=== PATIENT | female | born 1985 | race Caucasian/White ===

== ENCOUNTER → 2016-08-23 22:13 | Observation (INO) ==
--- NOTE | 2016-08-23 20:45 | OB/GYN History & Physical ---
Date of Encounter: 08/23/16 Time of Encounter: 20:42 Assessment and Plan (1) Hypertension Current visit: Yes Status: Resolved BP on intake 135/84 with hr 93. Patient's blood pressure cycled every 15 minutes: Systolic between 1:15 and 123 , diastolic between 61 and 74. Heart rate between 67 and 82. Urine protein less than 7 Protein to creatinine ratio less than 0.15. reactive on monitor with heart [id number] with accelerations 160s-170s. Given the above, no clinical indication of pre-eclampia. Discussed the plan is the patient and she has no additional questions. She feels safe for discharge home. Her next appointment with her primary OB is Anitra. Aug. Qualifiers: Qualified Code(s): I15.8 - Other secondary hypertension (2) High-risk in third trimester Current visit: Yes Status: Acute Currently followed at [facility]. Patient has planned induction vs for first week of November (delivery date 15 November). 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 Hx pancreatectomy, splenectomy, cholycystecomy, appendectomy, 80% colectomy, 50% gastrectomy. 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 Sanz is a 31 year old female presents from home with concern re: hypertension. 28wk gestation due 15 November. Breech presentation. ([id number]; miscarried @ 6wks). High risk followed by [facility]. Next appt Aug. BP measured at home as 162/102 via wrist automatic blood pressure cuff at 18: 45. Patient had just returned home from work and was agitated during the measurement. Patient's mother and sister have history of preeclampsia and encouraged her to present to the emergency department for evaluation. She ated dinner prior to presentation. Also complains of bilateral LE pedal edema, worse throughout the day as well as back pain improved with heating pad and headache improved with Tylenol. Patient was at [facility] ER yesterday with concerns regarding loose bowels. Was C. Diff (-). Discharged home. She has maintained adequate rehydration. PMH: No hx HTN. Insulin dependent DM. hx C-diff; last episode Feb. PSH: pancreatectomy splenectomy cholecystectomy appendectomy 80% colectomy 50% gastrectomy Fam Hx: Mother and sister with hx pre-eclampsia. Past Med Surg Social Fam HX - Past Medical History Medical history: diabetes - Social History Smoking Status: Never smoker Alcohol use: none Drug use: none - Family History Father Living Status: Still Living Hx Family Cardiac Disorders: Yes (HTN) Hx Family Respiratory Disorders: No Hx Family Cancer: No Hx Family GI Disorders: No Hx Family Genitourinary Disorders: No Hx Family Endocrine Disorder: No Hx Family Musculoskeletal Disorders: No Hx Family Neuromuscular Disorders: No Hx Family Neurologic Disorders: No Hx Family HEENT Disorders: No Hx Family Autoimmune Disorders: No Hx Family Reproductive Disorders: No Hx Family Psychosocial Disorders: No Hx Family Medical Disorders: No Medications and Allergies Insulin Pump/Infus. Set/Meter [Accu-Chek Combo System] 08/23/16 [History] Lipase/Protease/Amylase [Creon Dr 24,000 Units Capsule] 6 tab PO ACHS 08/23/16 [ History] [id number]/Iron Fumarate/FA/Dss [ 19 Tablet] 1 tab PO DAILY 08/23/16 [ History] Vitamin B Complex [B Complex] 1 tab PO BID 08/23/16 [History] Allergies Hydromorphone [From Dilaudid] Allergy (Verified 08/23/16 20:22) Rash broncheal spasms meperidine [From Demerol] Allergy (Verified 08/23/16 20:22) Anaphylaxis morphine Allergy (Verified 08/23/16 20:22) Anaphylaxis moxifloxacin [From Avelox] Allergy (Verified 08/23/16 20:22) Rash vancomycin Allergy (Verified 08/23/16 20:22) Rash Review of System OB - Constitutional Constitutional ROS IM: no anorexia, no fever(s), no malaise - Cardiovascular Cardiovascular: leg edema, no chest pain, no lightheadedness, no palpitations - Respiratory Respiratory: no cough, no dyspnea - Gastrointestinal Gastrointestinal: loose stools (chronic), no abdominal pain, no change in bowel habits, no hematochezia, no melena, no nausea, no vomiting - Genitourinary Genitourinary: no difficulty urinating, no flank pain, no urinary frequency, no urinary hesitancy, no vaginal discharge - Muscloskeletal Musculoskeletal: back pain - Neurological Nerological: headache(s), no confusion, no dizziness, no focal weakness Exam - Constitutional Constitutional: well developed, well nourished, no acute distress, average body habitus - HEENT HEENT: Normocephaly, Mucus Membranes Moist - Neck Neck exam: normal inspection, supple - Lungs Respiratory exam: CTAB - Cardiovascular Cardiovascular exam: RRR, +S1, +S2 - Abdomen Abdomen: Present: bowel sounds normal, gravid, non tender. Absent: guarding noted - Extremities Extremities exam: normal capillary refill, normal inspection, pedal edema (1+ and equal bilaterally) Results Result Diagrams: 08/23/16 21:16 08/23/16 21:16 All other labs normal. - VTE Reasons for not Prescribing Prophylaxis: Medical contraindication
[2016-08-23 21:29] LABS: Creatinine,Urine 46 mg/dL
[2016-08-23 21:31] LABS: Basophils % 0.3 %; Eosinophils # 0.2 K/mcL (0.0-0.6); Eosinophils % 1.5 %; Hematocrit 36.1 % (35.3-44.9); Hemoglobin 12.5 g/dL (11.5-15.4); Immature Granulocytes % 1.7 % (0-4); Immature Platelets 9.3 % (1.1-6.1); Lymphocytes # 2.2 K/mcL (0.6-4.6); Lymphocytes % 22.9 %; Mean Corpuscular HGB Conc 34.6 g/dL (31.6-35.5); Mean Corpuscular Hemoglobin 32.8 pg (28.0-33.3); Mean Corpuscular Volume 94.8 fL (83.0-100.0); Monocytes # 0.8 K/mcL (0.0-1.3); Monocytes % 8.4 %; Neutrophils # 6.3 K/mcL (1.6-8.9); Platelet Count 226 K/mcL (140-400); Red Blood Count 3.81 M/mcL (3.82-4.97); Red Cell Distribution Width 13.7 % (11.5-14.5); Segmented Neutrophils % 65.2 %
[2016-08-23 21:32] LABS: Protein/Creatinine Ratio,Urine < 0.15 mg/mg (0-0.20)
[2016-08-23 21:43] LABS: Alanine Aminotransferase 15 Units/L (0-55); Aspartate Amino Transferase 21 Units/L (5-34); BUN/Creatinine Ratio 13 (6-26); Blood Urea Nitrogen 9 mg/dL (7-20); Lactate Dehydrogenase 162 Units/L (159-327); Uric Acid 4.8 mg/dL (2.6-6.0); eGFR For African Americans > 60 (> 60); eGFR For Non-African Americans > 60 (> 60)
== END | disposition home or self-care (01) ==
LOC: 1NENULAB
PROVIDERS: ADMIT Obstetrics & Gynecology; ATTEND Obstetrics & Gynecology

== ENCOUNTER → 2016-09-18 21:26 | Observation (INO) ==
[2016-09-18 18:48] LABS: Bilirubin,Urine Negative (Negative); Blood,Urine Negative (Negative); Clarity,Urine Cloudy (Clear); Color,Urine Dark Yellow (Yellow); Glucose,Urine (UA) 250 mg/dL (Normal); Ketones,Urine Negative (Negative); Leukocyte Esterase,Urine Moderate (Negative); Nitrite,Urine Negative (Negative); PH,Urine 5.5 pH Units (5.0-8.0); Protein,Urine Trace mg/dL (Neg-Trace); Specific Gravity,Urine 1.027 (1.010-1.025); Urobilinogen,Urine Normal (Normal)
[2016-09-18 18:50] LABS: Hyaline Casts,Urine None Seen per lpf (None-Few); RBC,Urine 0-3 per hpf (0-3); Squamous Epithelial Cell,Urine Many per lpf (None-Few)
[2016-09-18 19:02] LABS: Calcium Oxalate Crystals,Urine Present
[2016-09-18 19:03] LABS: Bacteria,Urine Moderate per hpf (None-Few)
--- NOTE | 2016-09-18 21:10 | OB/GYN Progress Note ---
Date of Encounter: 09/18/16 Time of Encounter: 20:55 - Assessment and Plan (1) contractions Current Visit: Yes Status: Acute 31 y/o @ 31+5 weeks who presents today PTC, no LOF, VB or ctxs, feels good FM, cervix checked and FT, UA flagged for culture, IV fluid bolus given, ok for discharge Objective - Vital Signs Vital Signs: Intake and Output 09/18/16 09/18/16 09/18/16 07:59 15:59 23:59 Other: Weight 65.7 kg Patient Weight 09/18/16 23:59 Weight 65.7 kg - Labs Labs: Abnormal lab results Urine Clarity Cloudy (Clear) A 09/18/16 18:30 Ur Specific [place] 1.027 (1.010-1.025) H 09/18/16 18:30 Urine Glucose (UA) 250 mg/dL (Normal) H 09/18/16 18:30 Ur Leukocyte Esterase Moderate (Negative) H 09/18/16 18:30 Urine Microscopic WBC 5-15 per hpf (0-3) H 09/18/16 18:30 Ur Squamous Epith Cells Many per lpf (None-Few) H 09/18/16 18:30 Urine Bacteria Moderate per hpf (None-Few) H 09/18/16 18:30 Ur Culture Indicated? YES (NO) A 09/18/16 18:30
[~2016-09-18 21:26] MED LIST: 0.9 % Sodium Chloride 1,000 ML IVC ONE; 0.9 % Sodium Chloride 1,000 ML ONE; Ringers Solution, Lactated 1,000 ML ONE
== END | disposition home or self-care (01) ==
LOC: 1NENULAB
PROVIDERS: ADMIT Student in an Organized Health Care Education/Training Program; ATTEND Student in an Organized Health Care Education/Training Program

== ENCOUNTER → 2016-09-19 17:00 | Observation (INO) ==
--- NOTE | 2016-09-19 15:57 | OB/GYN Progress Note ---
Date of Encounter: 09/19/16 Time of Encounter: 15:50 - Assessment and Plan (1) 31 weeks gestation of Current Visit: Yes Status: Acute (2) Modified White class B pregestational diabetes mellitus Current Visit: Yes Status: Acute (3) Urinary tract infection affecting care of mother in third trimester, antepartum Current Visit: Yes Status: Acute GBS in urine will place on keflex 500mg BID (4) Vaginal candidiasis Current Visit: Yes Status: Acute will place on terconazole 7 (5) Bacterial vaginosis Current Visit: Yes Status: Acute will place on flagyl 500mg bid (6) High-risk in third trimester Current Visit: No Status: Acute (7) contractions Current Visit: No Status: Acute Subjective - Subjective Interval history: Patient is a 31-year-old 1 para 0 at 31-6/7 weeks who presented to labor and delivery complaining of possible ruptured membranes. Patient has high risk gets her care at [facility]. Patient states she was seen at this morning NST was performed showing occasional contractions but nothing that they were concerned about. On her way home she states she had a gush of fluid called her physician did go to the closest hospital and is truly ruptured we could [facility] her back down there. Patient has significant medical issues with class B diabetes secondary to the pancreatectomy she has had a splenectomy a Samira-en-Y and 80% of her large colon removed. She does have some absorption issues states no significant difference between rectal oil that typically comes out and the discharge she had at this time patient was seen on labor and delivery last night for contractions she was observed nothing that wanted more than IV hydration and then discharged home. Patient to get a urinalysis last time culture did come back positive for group B. Patient states that she needs she had group B in her urine but they told her they would not treat that until time of delivery. Did inform her that we typically treat group B in the uterine any time during the because it is a urinary tract infection that will cause irritation and could lead to pyelonephritis. Patient states the baby is still moving. Patient is on an insulin pump sugars are well controlled at this time. Did advise her that this hospital is really not the best choice for her because if she shows up and we are unable to transfer she is putting herself at risk because of her history. It is in her records the patient was to need a section to have a general surgeon available to assist for potential adhesions. Antepartum ROS: contractions Objective - Exam FHR: category 1 FHR comments: heart tones 140s reactive no contraction seen occasional irritability noted Abdomen: Present: normal appearance, other (bedside US showed breech presentation with TOMMY 17.76cm) Uterus: Present: firm, tenderness (Suprapubic region) Cervical dilation: fingertip Cervix effacement: thick station: ballotable Comments: Sterile speculum exam performed and the patient no fluid seen in the vagina nitrazine was negative ferning was negative wet mount performed on the patient did reveal bacterial vaginosis with some Catrina., she was very tender to palpation with the speculum and very tender to palpation on the anterior vaginal wall.
[~2016-09-19 17:00] MED LIST changes: -0.9 % Sodium Chloride 1,000 ML IVC ONE; -0.9 % Sodium Chloride 1,000 ML ONE; -Ringers Solution, Lactated 1,000 ML ONE; +cephALEXin 500 MG CAPSULE PO ONE
== END | disposition home or self-care (01) ==
LOC: 1NENULAB
PROVIDERS: ADMIT Obstetrics & Gynecology; ATTEND Obstetrics & Gynecology

== ENCOUNTER → 2016-10-17 15:50 | Observation (INO) ==
[2016-10-17 15:05] LABS: Bilirubin,Urine Negative (Negative); Blood,Urine Negative (Negative); Clarity,Urine Cloudy (Clear); Color,Urine Yellow (Yellow); Glucose,Urine (UA) Normal (Normal); Ketones,Urine Negative (Negative); Leukocyte Esterase,Urine Moderate (Negative); Nitrite,Urine Negative (Negative); Protein,Urine Negative (Neg-Trace); Specific Gravity,Urine 1.012 (1.010-1.025); Urobilinogen,Urine Normal (Normal)
[2016-10-17 15:06] LABS: Hyaline Casts,Urine None Seen per lpf (None-Few); RBC,Urine 0-3 per hpf (0-3); Squamous Epithelial Cell,Urine Many per lpf (None-Few); WBC,Urine 15-30 per hpf (0-3)
[2016-10-17 15:10] LABS: Bacteria,Urine Many per hpf (None-Few)
--- NOTE | 2016-10-17 15:43 | Discharge Summary ---
Date of Encounter: 10/17/16 Time of Encounter: 15:42 - Discharge Diagnosis (1) 35 weeks gestation of Priority: Primary Status: Acute Comments: admitted for observation (2) High-risk in third trimester Priority: Secondary Status: Acute Comments: Patient doctors at (3) Modified White class B pregestational diabetes mellitus Priority: Secondary Status: Acute Comments: monitored by primary ob at (4) NST (non-stress test) reactive Priority: Secondary Status: Acute Comments: Baseline 125 bpm moderate variability +15x15 accels no decels noted. - Discharge Medications Home Medications: Insulin Pump/Infus. Set/Meter [Accu-Chek Combo System] 08/23/16 [History] Lipase/Protease/Amylase [Creon Dr 24,000 Units Capsule] 6 tab PO ACHS 08/23/16 [ History] [id number]/Iron Fumarate/FA/Dss [ 19 Tablet] 1 tab PO DAILY 08/23/16 [ History] Acetaminophen [Tylenol] 500 mg PO Q6HR PRN 09/18/16 [History] Cholecalciferol (D-3) [Vitamin D] 10,000 unit PO DAILY 09/18/16 [History] Promethazine [Phenergan] 12.5 mg PO Q6HR PRN 09/18/16 [History] Vistaril 25 mg PO Q4HR 10/17/16 [History] Allergies/Adverse Reactions: Allergies Hydromorphone [From Dilaudid] Allergy (Verified 08/23/16 20:22) Rash broncheal spasms meperidine [From Demerol] Allergy (Verified 08/23/16 20:22) Anaphylaxis Methadone Allergy (Verified 09/18/16 18:10) Itching morphine Allergy (Verified 08/23/16 20:22) Anaphylaxis moxifloxacin [From Avelox] Allergy (Verified 08/23/16 20:22) Rash vancomycin Allergy (Verified 08/23/16 20:22) Rash Data Procedures and tests throughout hospitalization: Laboratory Tests 10/17/16 14:55 Urine Color Yellow Urine Clarity Cloudy A Urine pH 6.0 Ur Specific [place] 1.012 Urine Protein Negative Urine Glucose (UA) Normal Urine Ketones Negative Urine Blood Negative Urine Nitrite Negative Urine Bilirubin Negative Urine Urobilinogen Normal Ur Leukocyte Esterase Moderate H Urine Microscopic RBC 0-3 Urine Microscopic WBC 15-30 H Ur Squamous Epith Cells Many H Urine Bacteria Many H Hyaline Casts None Seen Ur Culture Indicated? YES A Labs on day of discharge: Labs from last 24 hours 10/17/16 14:55 Urine Color Yellow Urine Clarity Cloudy A Urine pH 6.0 Ur Specific [place] 1.012 Urine Protein Negative Urine Glucose (UA) Normal Urine Ketones Negative Urine Blood Negative Urine Nitrite Negative Urine Bilirubin Negative Urine Urobilinogen Normal Ur Leukocyte Esterase Moderate H Urine Microscopic RBC 0-3 Urine Microscopic WBC 15-30 H Ur Squamous Epith Cells Many H Urine Bacteria Many H Hyaline Casts None Seen Ur Culture Indicated? YES A Date of admission: 10/17/16 14:25 Primary care physician: David Whatley DO Discharging clinician: Jennie Resendez Anticipated date of discharge: 10/17/16 - Patient Status Disposition: Home, Self-Care Condition: Good Functional capacity at discharge: independent ambulation - Discharge Instructions Follow Up With: David Whatley DO [Primary Care Provider] - - Diet and Activity Activity: increase activity as tolerated Diet: regular diet Hospital Course SEO INTERN Hospital course: Patient is 31 y/o at 35w6d presents to labor and delivery following her OB appointment in [place]. Patient states she was a NST only today and was ashley every 3 minutes. Patient states they became stronger the closer she got to 23. Patient denies LOF or VB. Reports +FM. Patient scheduled to see her OB on . SVE was FT on admission. Patient declines recheck prior to discharge home. Time Attestation: Total time spent providing and/or coordinating discharge services: Time Spent: Less than 30 minutes Exam - Constitutional General appearance IM: A&O X 3, pleasant, answers questions appropriately - Respiratory Respiratory exam: Present: CTAB - Cardiovascular Cardiovascular exam IM: Present: RRR, +S1, +S2 - GI/Abdominal GI/Abdominal exam IM: normal bowel sounds - Extremities Exam Extremities exam IM: Present: full ROM, normal capillary refill, normal inspection - Neurological Exam Neurological exam: alert, oriented X3, reflexes normal - Other Additional findings: FHR 120 bpm moderate variability +15x15 accels no decels noted. Irregular contractions. Cat. 1 tracing. Reactive NST. - VTE Reasons for not Prescribing Prophylaxis: Treatment not Indicated - Low risk for VTE
== END | disposition home or self-care (01) ==
LOC: 1NENULAB
PROVIDERS: ADMIT Obstetrics & Gynecology; ATTEND Obstetrics & Gynecology